=== PATIENT | male | born 2000 | race Hispanic/Latino ===

== ENCOUNTER 2023-07-05 14:30 | Emergency (ER) | payer OTHER, SELFPAY ==
[2023-07-05] VITALS (12 sets, daily range): BP systolic 115–144; BP diastolic 58–89; PULSE 88–109; RESP 15–25; TEMP 36.6; O2SAT 98–100
--- NOTE | ~2023-07-05 | XR_ITS ---
EXAMINATION: XR shoulder LT min 2V DATE: 07/05/2023 16:11 INDICATION: Postreduction left shoulder dislocation TECHNIQUE: AP and transscapular Y views of the left shoulder were obtained. COMPARISON: None FINDINGS: Successful reduction of the previously dislocated right glenohumeral joint is now in normal alignment . No fracture. Glenohumeral and acromioclavicular joint spaces are normal. Soft tissues are unremarka ble. IMPRESSION: Anatomic alignment post successful reduction of the procedure is clear right glenohumeral joint. No f racture. Reviewed, dictated and finalized at location A. IMPRESSION: Anatomic alignment post successful reduction of the procedure is clear right gl enohumeral joint. No fracture.
--- NOTE | ~2023-07-05 | XR_ITS ---
EXAMINATION: XR shoulder LT min 2V DATE: 07/05/2023 15:09 INDICATION: Left shoulder deformity and limited range of motion post fall TECHNIQUE: AP internally and externally rotated, AP oblique externally rotated and transscapular Y vi ews of the left shoulder were obtained. COMPARISON: None FINDINGS: Anterior dislocation of the left glenohumeral joint. Acromioclavicular joint space is normal. No evid ent fracture. Soft tissues are unremarkable. Visualized portion of the left lung is clear. IMPRESSION: Anterior left glenohumeral dislocation. Reviewed, dictated and finalized at location A.
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
[2023-07-05] MEDS: ONDANSETRON INJ 4 MG/2 ML VIAL IV PUSH (15:38)
[2023-07-05] MEDS: MORPHINE SULFATE (*CRX) 4 MG/ML INJ IV PUSH (15:38)
--- NOTE | 2023-07-05 15:45 | PC.NURSE ---
Time out performed by Dr. Kat. All equipment in room. Consent signed.
[2023-07-05] MEDS: ETOMIDATE 20 MG/10 ML AMPUL 7 MG IV PUSH (15:54)
[2023-07-05] MEDS: SODIUM CHLORIDE 0.9% IV 1,000 ML 999 ML (16:16)
--- NOTE | 2023-07-05 16:18 | PC.NURSE ---
1554: 7mg of Etomidate given. 1556: 5mg of Etomidate given. 1558: Dr. Osborne done w/procedure XRAY called.
== END 2023-07-05 17:27 | disposition home or self-care (01) ==
PROVIDERS: Emergency Provider Student in an Organized Health Care Education/Training Program
DX: S43.015A Anterior dislocation of left humerus, initial encounter (principal); V18.4XXA Pedal cycle driver injured in noncollision transport accident in traffic accident, initial encounter; Y93.55 Activity, bike riding
CPT/HCPCS: 23650; 73030; 96374; 96375; 99285; J2270; J2405; J7030